=== PATIENT | female | born 1980 | race Two or more races ===

== ENCOUNTER 2016-02-25 20:45 | Emergency (ER) | payer OTHER ==
--- NOTE | 2016-02-25 21:25 | XR ---
EXAMINATION TYPE: XR chest 2V DATE OF EXAM: 02/25/2016 9:21 PM COMPARISON: 02/15/2016 HISTORY: Head injury. Fall. Asthma. TECHNIQUE: Frontal and lateral views of the chest are obtained. FINDINGS: Heart and mediastinum are normal. Lungs are clear. Diaphragm is normal. Bony thorax and so ft tissues appear normal. IMPRESSION: Normal chest. No change.
--- NOTE | 2016-02-25 21:27 | CT ---
EXAMINATION TYPE: CT brain zafar chilel con DATE OF EXAM: 02/25/2016 9:22 PM COMPARISON: NONE HISTORY: Fall with posterior head injury. Headache, neck pain that radiates down arms. CT DLP: 1364.80 mGycm Automated exposure control for dose reduction was used. TECHNIQUE: CT scan of the head and cervical spine are performed without contrast. FINDINGS: The ventricles and sulci appear normal. There is no mass effect or midline shift. There i s no sign of intracranial hemorrhage. The calvarium is intact. There is mild mucosal thickening in th e maxillary sinuses and ethmoid sinuses. The cervical vertebra have normal alignment. Posterior elements are intact. Disc spaces are normal. F acet joints are normal. Skull base appears intact. I see no bony destructive process. IMPRESSION: Normal CT scan of the cervical spine. Mild maxillary and ethmoid sinusitis. Otherwise negative CT scan of the brain.
[2016-02-25] MEDS ORDERED: MORPHINE SULFATE 4 MG/ML SYRINGE IVP STA (21:39)
[2016-02-25] MEDS ORDERED: ONDANSETRON 4 MG/2 ML VIAL IVP STA (21:40)
[2016-02-25] MEDS ORDERED: ACETAMINOPHEN TAB 500 MG TAB PO STA (21:40)
--- NOTE | 2016-02-25 21:42 | ED ---
General Adult HPI - General Chief complaint: Fall Stated complaint: fell, head injury Time Seen by Provider: 02/25/16 20:50 Source: patient, RN notes reviewed Mode of arrival: EMS Limitations: no limitations - History of Present Illness Initial comments: This is a 35-year-old female who states she slipped on some water in the bathroom fell back and hit her head . According to EMS a bystanders said she was unconscious for one to 2 seconds. Patient complains of a posterior headache and slight neck pain. Patient denies any numbness or weakness. Patient states her right shoulder also is a little achy which has full range of motion. Patient denies any chest pain or palpitations. Patient denies any difficulty breathing shortness of breath per patient denies abdominal pain patient denies nausea vomiting diarrhea. Patient denies any other back pain. Patient denies any hip pain or lower extremity pain. - Related Data Previous Rx's Medication Instructions Recorded ALPRAZolam [Xanax] 0.5 mg PO TID PRN #10 tab 02/16/16 HYDROcodone/APAP 10-325MG [[place] 1 tab PO Q6H PRN #20 tab 02/16/16 10-325] Pantoprazole Sodium [Protonix] 40 mg PO BID 60 Days 02/16/16 traMADol HCl [Ultram] 50 mg PO Q6H PRN #20 tab 02/25/16 Allergies Allergy/AdvReac Type Severity Reaction Status Date / Time avocado Allergy Rash/Hives Verified 02/15/16 07:14 NSAIDS (Non-Steroidal Allergy Anaphylaxis Verified 02/15/16 07:14 Anti-Inflamma Review of Systems ROS Statement: Those systems with pertinent positive or pertinent negative responses have been documented in the HPI. ROS Other: All systems not noted in ROS Statement are negative. Past Medical History Past Medical History: Asthma Additional Past Medical History / Comment(s): sciatic pain History of Any Multi-Drug Resistant Organisms: None Reported Past Surgical History: Appendectomy Past Anesthesia/Blood Transfusion Reactions: No Reported Reaction Past Psychological History: No Psychological Hx Reported Smoking Status: Current every day smoker Past Alcohol Use History: None Reported Past Drug Use History: None Reported - Past Family History Mother Family Medical History: No Reported History Father Family Medical History: No Reported History General Exam - General Exam Comments Initial Comments: GENERAL: Patient is well-developed and well-nourished. Patient is nontoxic and well- hydrated and is in mild distress. ENT: Neck is soft and supple. No significant lymphadenopathy is noted. Oropharynx is clear. Moist mucous membranes. Neck has full range of motion without eliciting any pain. Patient has no spinous process tenderness. EYES: The sclera were anicteric and conjunctiva were pink and moist. Extraocular movements were intact and pupils were equal round and reactive to light. Eyelids were unremarkable. PULMONARY: Unlabored respirations. Good breath sounds bilaterally. No audible rales rhonchi or wheezing was noted. CARDIOVASCULAR: There is a regular rate and rhythm without any murmurs gallops or rubs. ABDOMEN: Soft and nontender with normal bowel sounds. No palpable organomegaly was noted. There is no palpable pulsatile mass. SKIN: Skin is clear with no lesions or rashes and otherwise unremarkable. NEUROLOGIC: Patient is alert and oriented x3. Cranial nerves II through XII are grossly intact. Motor and sensory are also intact. Normal speech, volume and content. Symmetrical smile. MUSCULOSKELETAL: Normal extremities with adequate strength and full range of motion. No lower extremity swelling or edema. No calf tenderness. LYMPHATICS: No significant lymphadenopathy is noted PSYCHIATRIC: Normal psychiatric evaluation. Limitations: no limitations Course Vital Signs 02/25/16 20:51 Temperature 98.3 F Pulse Rate 104 H Respiratory 16 Rate Blood Pressure 145/71 O2 Sat by Pulse 99 Oximetry Medical Decision Making - Medical Decision Making CT of the brain and C-spine showed no acute abnormality. Chest x-ray shows no acute abnormality. Disposition Clinical Impression: Concussion Disposition: HOME SELF-CARE Instructions: Concussion (ED) Additional Instructions: In addition to the tramadol the patient can also take Tylenol when necessary for pain. Patient should take Zofran every 6 hours when necessary for nausea Prescriptions: traMADol HCl [Ultram] 50 mg PO Q6H PRN #20 tab PRN Reason: When necessary for pain Referrals: None,Stated [Primary Care Provider] - 1-2 days Time of Disposition: 22:10
[2016-02-25] MEDS ORDERED: ONDANSETRON 4 MG ODT STARTER PACK 2 TAB BTL PO STA (22:13)
[2016-02-25] MEDS ORDERED: MORPHINE SULFATE 10 MG/ML SYRINGE IM STA (22:44)
[2016-02-25] MEDS ORDERED: ONDANSETRON 4 MG/2 ML VIAL IM STA (22:44)
[2016-02-25 23:20] VITALS: BP 132/78; PULSE 78; RESP 18; TEMP 96.5
== END 2016-02-25 23:20 | disposition home or self-care (01) ==
LOC: EEVIPCON 20:45 → EC 20:45
DX: S06.0X0A Concussion without loss of consciousness, initial encounter (principal); J32.2 Chronic ethmoidal sinusitis; F17.200 Nicotine dependence, unspecified, uncomplicated; Z88.6 Allergy status to analgesic agent; Z91.018 Allergy to other foods; W01.0XXA Fall on same level from slipping, tripping and stumbling without subsequent striking against object, initial encounter; Y92.012 Bathroom of single-family (private) house as the place of occurrence of the external cause
CPT/HCPCS: 99285; 96372 ×2; 96374; 96375; 71020; 72125; 70450; J2270 ×2; J2405

== ENCOUNTER 2016-03-08 20:56 | Observation (INO) | payer OTHER ==
--- NOTE | 2016-03-08 22:41 | ED ---
Chest Pain HPI - General Chief Complaint: Chest Pain Stated Complaint: chest pain Time Seen by Provider: 03/08/16 21:25 Source: patient, family Mode of arrival: wheelchair Limitations: no limitations - History of Present Illness Initial Comments: This patient is a 35-year-old woman who presents to be evaluated for chest pain that is been going on since approximately 9:30 this morning. The patient states that she had been washing dishes at the time that started. She states that she also has a funny feeling into her neck and jaw as well as arm. The patient has had some nausea. Patient states that the pain is constant it is aching, and severe. She has not discovered any worsening or relieving factors. MD Complaint: chest pain Onset/Timin -: hour(s) Onset: other (While washing dishes) Pain Location: substernal Pain Radiation: neck Severity: severe Quality: sharp Consistency: constant Improves With: nothing Worsens With: nothing Treatments Prior to Arrival: none - Related Data Home Medications Medication Instructions Recorded Confirmed Ciprofloxacin HCl [Cipro] 500 mg PO Q12HR 03/08/16 03/08/16 Previous Rx's Medication Instructions Recorded ALPRAZolam [Xanax] 0.5 mg PO TID PRN #10 tab 02/16/16 HYDROcodone/APAP 10-325MG [[place] 1 tab PO Q6H PRN #20 tab 02/16/16 10-325] Pantoprazole Sodium [Protonix] 40 mg PO BID 60 Days 02/16/16 Allergies Allergy/AdvReac Type Severity Reaction Status Date / Time avocado Allergy Rash/Hives Verified 03/08/16 23:05 NSAIDS (Non-Steroidal Allergy Anaphylaxis Verified 03/08/16 23:05 Anti-Inflamma Review of Systems ROS Statement: Those systems with pertinent positive or pertinent negative responses have been documented in the HPI. ROS Other: All systems not noted in ROS Statement are negative. Constitutional: Denies: fever, chills Respiratory: Denies: cough, dyspnea Cardiovascular: Reports: as per HPI, chest pain. Denies: palpitations, dyspnea on exertion, orthopnea, edema, syncope Gastrointestinal: Reports: nausea. Denies: abdominal pain, vomiting, diarrhea, melena, hematochezia Genitourinary: Denies: dysuria, hematuria Musculoskeletal: Denies: back pain Skin: Denies: rash Neurological: Denies: headache, weakness, numbness EKG Findings - EKG Results: EKG: WNL, sinus rhythm (Rate 89 bpm), normal axis, normal QRS, normal ST/T, no acute changes - VA, Pacemaker, Normal: Normal tracing: normal tracing Past Medical History Past Medical History: Asthma Additional Past Medical History / Comment(s): sciatic pain History of Any Multi-Drug Resistant Organisms: None Reported Past Surgical History: Appendectomy Past Anesthesia/Blood Transfusion Reactions: No Reported Reaction Past Psychological History: No Psychological Hx Reported Smoking Status: Current every day smoker Past Alcohol Use History: None Reported Past Drug Use History: None Reported - Past Family History Mother Family Medical History: No Reported History Father Family Medical History: No Reported History General Exam Limitations: no limitations General appearance: alert, in no apparent distress Head exam: Present: atraumatic, normocephalic Eye exam: Present: normal appearance. Absent: scleral icterus, conjunctival injection ENT exam: Present: normal oropharynx Neck exam: Present: normal inspection Respiratory exam: Present: normal lung sounds bilaterally. Absent: respiratory distress, wheezes, rales, rhonchi, stridor, decreased breath sounds Cardiovascular Exam: Present: regular rate, normal rhythm, normal heart sounds. Absent: systolic murmur, diastolic murmur, rubs, gallop GI/Abdominal exam: Present: soft. Absent: distended, tenderness, guarding, rebound, mass Extremities exam: Present: normal inspection, normal capillary refill. Absent: pedal edema, calf tenderness Back exam: Present: normal inspection. Absent: CVA tenderness (R), CVA tenderness (L) Neurological exam: Present: alert Skin exam: Present: warm, dry, intact, normal color. Absent: rash, cyanosis, diaphoretic, erythema, petechiae, pallor, mottled Course Vital Signs 03/08/16 03/09/16 03/09/16 21:07 02:57 04:00 Temperature 97.9 F Pulse Rate 102 H 98 70 Respiratory 18 16 1 L Rate Blood Pressure 155/74 126/82 108/64 O2 Sat by Pulse 99 98 97 Oximetry 03/09/16 03/09/16 06:23 07:56 Temperature Pulse Rate 76 74 Respiratory 16 16 Rate Blood Pressure 96/59 104/62 O2 Sat by Pulse 97 97 Oximetry - Reevaluation(s) Reevaluation #2: 03/09/16 04:00 The repeat EKG again demonstrates sinus rhythm the rate is 71 bpm. GA, QRS, QT intervals are normal. [place] is normal. There are no acute ST or T-segment changes. As interpreted as normal EKG. Disposition Clinical Impression: Chest pain Disposition: ADMITTED IP TO THIS HOSP Condition: Fair
[2016-03-08] MEDS ORDERED: ASPIRIN 81 MG CHEW PO STA (22:44)
[2016-03-08] MEDS ORDERED: MORPHINE SULFATE 4 MG/ML SYRINGE IV STA (22:44)
[2016-03-08 22:55] LABS: ALT 25 U/L (9-52); AST 16 U/L (14-36); Alkaline Phosphatase 66 U/L (38-126); Amylase 41 U/L (30-110); Anion Gap 11 mmol/L; Blood Urea Nitrogen 15 mg/dL (7-17); Carbon Dioxide 26 mmol/L (22-30); Chloride 105 mmol/L (98-107); Glucose 93 mg/dL (74-99); Magnesium 2.1 mg/dL (1.6-2.3); Non-African American GFR(MDRD) >60 (>60 ml/min/1.73 sqM); Potassium 3.7 mmol/L (3.5-5.1); Sodium 142 mmol/L (137-145); Total Bilirubin 0.3 mg/dL (0.2-1.3); Total Protein 6.5 g/dL (6.3-8.2)
--- NOTE | 2016-03-08 22:56 | XR ---
EXAMINATION TYPE: XR chest 2V DATE OF EXAM: 03/08/2016 10:49 PM COMPARISON: 02/25/2016 HISTORY: History of asthma chest pain left arm and jaw pain. TECHNIQUE: Frontal and lateral views of the chest are obtained. FINDINGS: There is no focal air space opacity, pleural effusion, or pneumothorax seen. The cardiac silhouette size is within normal limits. The osseous structures are intact. IMPRESSION: 1. No acute cardiopulmonary process. 2. No significant interval change.
[2016-03-08 23:00] LABS: Anisocytosis Slight; Basophils % (A) 0 %; CH 23.1; CHCM 30.1; Eosinophils % (A) 1 %; HCT 32.5 % (34.0-46.0); Hypochromasia Marked; Luc # (Auto) 0.11; Luc % (Auto) 2; Lymphocytes % (A) 46 %; MCH 23.8 pg (25.0-35.0); MCHC 30.9 g/dL (31.0-37.0); Mean Platelet Volume 7.2; Microcytosis Moderate; Monocytes # (A) 0.2 k/uL (0-1.0); Monocytes % (A) 5 %; Neutrophils % (A) 45 %; RBC 4.22 m/uL (3.80-5.40); RDW 19.3 % (11.5-15.5); WBC 4.4 k/uL (3.8-10.6); WBC (Perox) 4.64
[2016-03-08 23:05] LABS: INR 1.1 (<1.1); Partial Thromboplastin Time 24.8 sec (22.0-30.0); Prothrombin Time 10.8 sec (9.0-12.0)
[2016-03-08 23:10] LABS: Creatine Kinase 33 U/L (30-135)
[2016-03-08 23:23] LABS: Creatine Kinase MB <0.2 ng/mL (0.0-2.4); Troponin I <0.012 ng/mL (0.000-0.034)
[2016-03-09] MEDS ORDERED: MORPHINE SULFATE 4 MG/ML SYRINGE IV STA (01:56)
[2016-03-09] MEDS ORDERED: NITROGLYCERIN SL TABS 0.4 MG TAB SUBLINGUAL PRN (02:57)
[2016-03-09] MEDS ORDERED: HYDROcodone/APAP 10-325MG 1 EACH TAB PO ONE (04:51)
[2016-03-09 04:54] LABS: Creatine Kinase 43 U/L (30-135)
[2016-03-09 05:06] LABS: Creatine Kinase MB <0.2 ng/mL (0.0-2.4); Troponin I <0.012 ng/mL (0.000-0.034)
[2016-03-09 09:12] VITALS: PULSE 83
[2016-03-09 09:47] VITALS: RESP 18
--- NOTE | 2016-03-09 10:33 | P.CRDCN ---
History of Present Illness Consult date: 03/09/16 Chief complaint: Chest pain History of present illness: This is a pleasant 35-year-old female patient with no significant past medical history significant family history of coronary artery disease in her father and mother presented to the hospital complaining of chest discomfort. The patient was in her usual state of health until yesterday when she was standing washing dishes and started experiencing chest discomfort, in the middle of the chest was some radiation to the left arm. She states the discomfort is sharp kind of discomfort. No assisted symptoms of shortness of breath, sweating, nausea or vomiting, or syncope. The EKG showed sinus rhythm without any significant ST or T-wave abnormalities. She underwent 3 sets of cardiac enzymes came in to be unremarkable. In view of the ongoing chest discomfort and significant family history of CAD I will schedule the patient undergo a stress test. Past Medical History Past Medical History: Asthma, GERD/Reflux Additional Past Medical History / Comment(s): Gastritis, low back pain occasionally with L sciatic pain, endometriosis, uterine fibroid, R ovarian cyst , anemia. History of Any Multi-Drug Resistant Organisms: None Reported Past Surgical History: Appendectomy Additional Past Surgical History / Comment(s): 02/16/16 EGD with bx Past Anesthesia/Blood Transfusion Reactions: No Reported Reaction Past Psychological History: Anxiety Additional Psychological History / Comment(s): Pt resides with spouse. She states she has anxiety but medication she takes for this works well. She is independent. Smoking Status: Current every day smoker Past Alcohol Use History: None Reported Additional Past Alcohol Use History / Comment(s): Pt states she started smoking at the age of 16 yrs. she is a ppd smoker. Past Drug Use History: None Reported - Past Family History Mother Family Medical History: Myocardial Infarction (VT) Additional Family Medical History / Comment(s): Mother at the age of 46yrs from a VT. Father Family Medical History: No Reported History Medications and Allergies Home Medications Medication Instructions Recorded Confirmed Type Ciprofloxacin HCl [Cipro] 500 mg PO Q12HR 03/08/16 03/08/16 History Allergies Allergy/AdvReac Type Severity Reaction Status Date / Time avocado Allergy Rash/Hives Verified 03/08/16 23:05 NSAIDS (Non-Steroidal Allergy Anaphylaxis Verified 03/08/16 23:05 Anti-Inflamma Physical Exam Vitals: Vital Signs Temp Pulse Pulse Resp BP BP Pulse Ox 03/09/16 09:45 97.7 F 83 18 110/65 99 03/09/16 09:00 97.5 F L 83 17 103/63 97 03/09/16 07:56 74 16 104/62 97 03/09/16 06:23 76 16 96/59 97 03/09/16 04:00 70 1 L 108/64 97 Intake and Output 03/08/16 03/09/16 03/09/16 22:59 06:59 14:59 Other: Weight 71.1 kg Patient Weight 03/10/16 06:59 Weight 71.1 kg - Constitutional General appearance: no acute distress - Respiratory Respiratory: bilateral: CTA - Cardiovascular Rhythm: regular Heart sounds: normal: S1, S2 Results 03/08/16 21:44 03/08/16 21:44 Cardiac Enzymes 03/09/16 Range/Units 03:54 CK-MB (CK-2) <0.2 (0.0-2.4) ng/mL Troponin I <0.012 (0.000-0.034) ng/mL Current Medications Generic Name Dose Route Start Last Admin Trade Name Freq PRN Reason Stop Dose Admin Aspirin 325 mg 03/10/16 09:00 Aspirin PO DAILY [facility] Heparin Sodium (Porcine) 5,000 unit 03/09/16 08:00 Heparin SQ Q8HR MIGUEL Nitroglycerin 0.4 mg 03/09/16 02:57 Nitrostat SUBLINGUAL Q5M PRN Chest Pain Intake and Output 03/08/16 03/09/16 03/09/16 22:59 06:59 14:59 Other: Weight 71.1 kg Patient Weight 03/10/16 06:59 Weight 71.1 kg Assessment and Plan Plan: Assessment #1 atypical chest discomfort Plan #1 the patient was ruled out for acute coronary syndrome #2 proceeding with a stress test
[2016-03-09 11:53] VITALS: BP 121/70; TEMP 98.1
[2016-03-09] MEDS ORDERED: HYDROmorphone 1 MG/ML 1 ML SYRINGE IVP STA (11:58)
[2016-03-09 12:00] LABS: Creatine Kinase 24 U/L (30-135)
[2016-03-09 12:11] LABS: Creatine Kinase MB <0.2 ng/mL (0.0-2.4); Troponin I <0.012 ng/mL (0.000-0.034)
[2016-03-09] MEDS ORDERED: DOBUTamine DRIP for NUC MED 500 MG in DEXTROSE/WATER 1 250ML.BAG IV ONE ×2 (12:38→12:39)
[2016-03-09] MEDS ORDERED: METOPROLOL TARTRATE 5 MG/5 ML VIAL IVP ONE (13:01)
[2016-03-09] MEDS ORDERED: ATROPINE SULFATE 0.1 MG/ML 10ML SYRINGE ONE (13:01)
--- NOTE | 2016-03-09 13:31 | ECHOS ---
DATE OF SERVICE: 03/09/2016 AGE: 35Y SEX: F HT: 62" WT: 156 lbs. Protocol [place]: Others: Dobutamine Stress Echo Stage: Dur. of Exercise: *Heart Rate Blood Pressure *Rest: 68 Rest: 105/56 * *Max. Achieved: 161 Maximum BP: 165/53 85% PMHR: 158 100% PMHR: 186 *METS: INDICATIONS: Chest pain. MEDICATIONS: [place], Protonix, Xanax, Cipro. CLINICAL INFORMATION: Chest pain, shortness of breath, family history of coronary artery disease, history of smoking 1 pack of cigarettes a day for 15 years. Resting ECG shows sinus rhythm, rate of 68 beats per minute, WI interval 0.16, QRS of 0.08, normal ST-T waves. Utilizing a standard dobutamine protocol, dobutamine increased up to 40 mcg without reaching the target heart rate. At that point 0.5 mg of Atropine was given and reached the target heart rate of 158 beats per minute, which is approximately 87% predicted maximum heart rate without any ST segment deviations or cardiac arrhythmias. Patient complained of mild chest pressure without any EKG changes, subsided spontaneously. Resting images show normal thickening and contractility. Postexercise images show improved contractility and thickening in all segments, consistent with normal study. 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 Normal dobutamine stress echocardiogram. 2. Patient had no ST segment deviations indicative of ischemia throughout the study.
[2016-03-09] MEDS: HEPARIN SODIUM,PORCINE 5,000 UNIT/ML 1 ML VIAL SQ SCH ×2 (15:21→18:11)
--- NOTE | 2016-03-09 22:12 | HP ---
CHIEF COMPLAINT: Chest pain. HISTORY OF PRESENT ILLNESS: Ms. Stevenson is a 35-year-old with a known history of gastritis, GERD, asthma, endometriosis, low back pain with left sciatic pain and microcytic anemia, came to the hospital with complaints of chest discomfort mainly in the mid sternum and some radiation to the left arm with numbness and tingling with sharp discomfort. No associated short of breath. No nausea or vomiting or abdominal pain. No syncope. No headache or dizziness or lightheadedness. Patient came to the hospital with similar complaints about a month ago and had an EGD done at that time, showed gastritis. The patient's have symptoms with Protonix and pain management with [place] 10. The patient now follows with a new primary care physician. Patient underwent 3 sets of cardiac enzymes, came out to be unremarkable. EKG showed normal sinus rhythm. Patient underwent stress testing as per Cardiology recommendations. Otherwise, the patient denied any recent travel or sick contacts at home. Patient apparently has been very stressful at home. REVIEW OF SYSTEMS: CONSTITUTIONAL: No fever. No chills. No weakness, malaise. RESPIRATORY: No cough or sputum production. CARDIOVASCULAR: No chest pain or short of breath. ABDOMEN: No nausea or vomiting, abdominal pain, epigastric and no constipation. No diarrhea. GENITOURINARY: No dysuria. No hematuria. ENDOCRINE: Negative. PSYCHIATRIC: Negative. SKIN: Negative. MUSCULOSKELETAL: Negative. All other 14-point review of systems negative except as above. The patient is anxious. PAST MEDICAL HISTORY: GERD, asthma, gastritis, low back pain occasionally with left sciatic pain, endometriosis, uterine fibroid, right ovarian cyst and microcytic anemia. PAST SURGICAL HISTORY: Appendectomy, EGD done on 02/16/2016 with biopsy. PSYCHOSOCIAL HISTORY: Anxiety. SOCIAL HISTORY: Patient lives with her spouse. Currently an everyday smoker, started smoking at age 16 years. She smokes 1 pack per day. Denied any alcohol. Denied any drugs or IVDU. FAMILY HISTORY: Mother had CT. Mother at the age of 46 CT. Father had no reported history. Home medications include: 1. Ciprofloxacin. 2. [place] 10. 3. Protonix. 4. Xanax. ALLERGIES: AVOCADO AND NSAIDS. PHYSICAL EXAMINATION: A 35-year-old female lying in bed comfortably. Awake, alert and oriented x3, appears to be in no apparent distress. VITALS: Blood pressure is 104/62, pulse is 74, respirations 16, temperature afebrile, pulse ox 97% on room air. HEENT: Atraumatic, normocephalic. Neck is supple. No JVD. CVS: S1, S2 heard. No murmurs. No gallop. No rub. LUNGS: Bilateral air entry is present. No wheezing. No crackles. Nonlabored breathing. Abdomen is soft, nontender. Bowel sounds are present. Mild epigastric tenderness. ROLLER: Awake, alert, oriented x3. No focal neurologic deficit. EXTREMITIES: No edema. Pulses are palpable bilaterally. No clubbing or cyanosis. PSYCHIATRIC: Cooperative, anxious. LABORATORY DATA: WBC 4.4, hemoglobin 10.0, MCV 77.0, RDW 19.3. D-dimer is 0.28. Sodium 142, potassium 3.7, chloride 105, bicarb is 26. BUN 15, creatinine 0.6. Magnesium 2.1, bilirubin 0.3. Liver enzymes within normal limits. Troponin x4 is negative. NT-proBNP is 66. Amylase, lipase not elevated. EKG: Normal sinus rhythm. Chest x-ray: No acute cardiopulmonary process. IMPRESSION: 1. Atypical chest pain rule out acute coronary syndrome. Serial EKGs and troponins are negative. Patient underwent stress test today. 2. Gastritis, status post esophagogastroduodenoscopy on 02/16/2016. 3. Anxiety and stressful situation at home. 4. Nicotine addiction, 1 pack per day. 5. Chronic pain syndrome. 6. Noncompliance with followup with primary care physician. 7. Left back sciatic pain. 8. Endometriosis. 9. Microcytic anemia. 10. Deep venous thrombosis prophylaxis. DISCUSSION AND PLAN: A 35-year-old female admitted to the hospital with chest discomfort. Patient underwent a stress test today. Will continue with the PPI and continue the pain management and further recommendations based on the clinical course.
[2016-03-10] MEDS ORDERED: ASPIRIN 325 MG TAB PO SCH (09:00)
--- NOTE | 2016-03-10 14:25 | DS ---
DATE OF ADMISSION: 03/08/2016 DATE OF DISCHARGE: 03/09/2016 DISCHARGE DIAGNOSES: 1. Atypical chest discomfort, rule out acute coronary syndrome negative with negative stress test. Serial EKGs and troponins are negative as well. 2. Gastroesophageal reflux disease. 3. Gastritis, status post EGD on 02/16/2016. 4. Anxiety and emotionally stressful situation at home currently. 5. Chronic back pain and left sciatic pain. 6. History of endometriosis. 7. Microcytic anemia. HOSPITAL COURSE: Ms. Stevenson is a 35-year-old female who was admitted to the hospital with epigastric chest pain and mid sternal chest pain, burning and sharp pain, some radiation to the left arm which made her come to the hospital. Patient had normal EKG and troponin levels. Cardiology recommended stress test, which was negative. Otherwise the patient is chest pain free, improved with pain management and Protonix. Patient will be prescribed with Protonix and pain medications for next one week and strongly recommended to follow with primary care physician. Otherwise, patient was encouraged to stop smoking as well. Otherwise, patient is cleared for discharge. D-dimer was negative and BNP is negative as well. Pathology report from the previous endoscopy showed chronic gastritis. DISCHARGE PHYSICAL EXAMINATION: A 35-year-old female lying in bed comfortably. Awake, alert, oriented x3. Appears to be in no apparent distress. VITALS: Blood pressure is 121/70, pulse is 83, respirations 18, temperature afebrile, pulse ox 97% on room air. Laboratory data reviewed. Discharge physical examination done. Discharge medications include: 1. Cipro 500 mg q.12 hourly. Continue treatment for urinary tract infection as which was recently diagnosed. 2. Xanax 0.5 mg p.o. t.i.d. p.r.n. for anxiety. 3. [place] 10 one tablet q.6 hourly p.r.n. for pain. 4. Protonix 40 mg p.o. b.i.d. for 30 days. Patient will be discharged home in stable condition. Follow with Dr. Nagel in [address] Kc in 3 weeks. Home with self-care. Activity as tolerated. Heart healthy diet.
== END 2016-03-09 17:50 | disposition home or self-care (01) ==
LOC: EC 20:56 → 3OBS 03-09 03:01
PROVIDERS: ADMIT Hospitalist; ATTEND Hospitalist
DX: R07.89 Other chest pain (principal); K21.9 Gastro-esophageal reflux disease without esophagitis; K29.70 Gastritis, unspecified, without bleeding; F41.9 Anxiety disorder, unspecified; G89.4 Chronic pain syndrome; M54.32 Sciatica, left side; N80.9 Endometriosis, unspecified; D50.9 Iron deficiency anemia, unspecified; F17.200 Nicotine dependence, unspecified, uncomplicated; Z91.19 Patient's noncompliance with other medical treatment and regimen; J45.909 Unspecified asthma, uncomplicated; Z79.899 Other long term (current) drug therapy; Z88.6 Allergy status to analgesic agent; Z82.49 Family history of ischemic heart disease and other diseases of the circulatory system; Z63.9 Problem related to primary support group, unspecified
CPT/HCPCS: 36415 ×2; 93005 ×2; 93017; 93350; 85379; 83880; 80053; 82150; 82550 ×2; 82553 ×2; 83690; 83735; 84484 ×2; 85025; 85610; 85730; 71020; 99285; 96374; 96376; G0378; J1250; J2270 ×2; J0461; J1170; 96375